=== PATIENT | male | born 1960 | race Hispanic/Latino ===

== ENCOUNTER → 2024-03-27 | Day surgery (SDC) | payer MEDICARE ==
[2024-03-21 14:45] LABS: BASOPHILS % 0.7 % (0.0-1.0); EOSINOPHILS % 1.5 % (0.0-6.0); HEMATOCRIT 43.1 % (38.2-49.6); HEMOGLOBIN 15.3 g/dL (14.0-18.0); LYMPHOCYTES # (AUTO) 0.7 (1.0-3.2); LYMPHOCYTES % 27.3 % (18.0-39.1); MEAN CORPUSCULAR HEMOGLOBIN 34.1 pg (28-32); MEAN CORPUSCULAR HGB CONC 35.5 g/dL (31-35); MONOCYTES # (AUTO) 0.2 (0.2-0.8); MONOCYTES % 8.2 % (4.4-11.3); NEUTROPHILS # (AUTO) 1.7 (2.1-6.9); NEUTROPHILS % 62.3 % (38.7-80.0); PLATELET COUNT 119 x10e3/uL (140-360); RED BLOOD COUNT 4.49 x10e6/uL (4.3-5.7); RED CELL DISTRIBUTION WIDTH 13.3 % (11.7-14.4); WHITE BLOOD COUNT 2.67 x10e3/uL (4.8-10.8)
[2024-03-21 14:47] LABS: INR 0.92; PROTHROMBIN TIME 12.9 seconds (11.9-14.5)
[2024-03-21 14:48] LABS: PARTIAL THROMBOPLASTIN TIME 27.1 seconds (23.8-35.5)
[2024-03-21 14:56] LABS: ALBUMIN 4.1 g/dL (3.5-5.0); ANION GAP 16.2 mmol/L (8-16); BILIRUBIN,TOTAL 0.9 mg/dL (0.2-1.2); CALCIUM 9.8 mg/dL (8.4-10.2); CREATININE, SERUM 0.93 mg/dL (0.72-1.25); TOTAL PROTEIN 8.2 g/dL (6.5-8.1)
[2024-03-21 14:57] LABS: POTASSIUM 5.2 mmol/L (3.5-5.1)
[~2024-03-27] MED LIST: ACETAMINOPHEN-1 EAC3 PO; BIKTARVY 50-201 EACH PO; EPHEDRINE SULFATE INJ 50 MG/ML VIAL ONE; FLOMAX0.4 MG PO; FOLIC ACID0.8 MG PO; IMURAN50 MG PO; JARDIANCE10 MG PO; KETOROLAC30 MG/1 M1 IM; LIDOCAINE HCL 2% LOCAL INJ 5 ML SDV VIAL INJ ONE; LINZESS145 MCG PO; LISINOPRIL5 MG PO; MEDROL4 MG PO; METFORMIN HCL500 MG PO; PROPOFOL IV EMULSION 10 MG/ML 20 ML VIAL ONE; VENTOLIN HFA18 GM INH; WIXELA 250-501 EACH INH
[2024-03-27] MEDS: LACTATED RINGER'S 1,000 ML ONE (07:19)
[2024-03-27 08:27] VITALS: TEMP 97.1
[2024-03-27 09:05] VITALS: BP 120/62; PULSE 78; RESP 18; O2SAT 99
== END | disposition home or self-care (01) ==
LOC: ENDO 06:26
PROVIDERS: ATTEND Internal Medicine Gastroenterology
DX: R13.10 Dysphagia, unspecified (principal); K29.50 Unspecified chronic gastritis without bleeding; K31.89 Other diseases of stomach and duodenum; K74.69 Other cirrhosis of liver; K21.00 Gastro-esophageal reflux disease with esophagitis, without bleeding; Z71.3 Dietary counseling and surveillance; Z21 Asymptomatic human immunodeficiency virus [HIV] infection status; D57.1 Sickle-cell disease without crisis; E11.9 Type 2 diabetes mellitus without complications; I10 Essential (primary) hypertension; E78.5 Hyperlipidemia, unspecified; Z78.9 Other specified health status; Z68.27 Body mass index [BMI] 27.0-27.9, adult; Z01.810 Encounter for preprocedural cardiovascular examination; Z01.812 Encounter for preprocedural laboratory examination; Z79.899 Other long term (current) drug therapy; Z86.73 Personal history of transient ischemic attack (TIA), and cerebral infarction without residual deficits; Z87.891 Personal history of nicotine dependence
CPT/HCPCS: 36415; 43239; 43249; 80053; 85025; 85610; 85730; 88305; 88342; 93005; J2003; J2704; J7121; 43233